=== PATIENT | male | born 1965 | race Caucasian/White ===

== ENCOUNTER 2020-03-12 10:15 | Day surgery (SDC) | payer BC ==
[2020-03-12] VITALS (12 sets, daily range): BP systolic 106–139; BP diastolic 63–90
[~2020-03-12] VITALS: Ht 177.8 cm; Wt 72.6 kg
[~2020-03-12 10:15] MED LIST: BUPIVAcaine/PF 2.5 mg/ml (0.25%) 30ml vial ONE; FURO40TA4 PO; LIDOcaine 1% 30ml preserv. free vial ONE; NALT50TA PO; SPIR25TA5 PO; ceFAZolin 2gm in dextrose, iso 50 ML IV ONE; famotidine 20mg tablet PO ONE; ringers solution, lacted 1,000 ML IV SCH
[2020-03-12] MEDS ORDERED: fentaNYL/PF 50MCG/1 ML 2ML syringe IV PRN ×2 (12:45)
[2020-03-12] MEDS ORDERED: morphine 2 MG/ML inj. syringe IV PRN (12:45)
[2020-03-12] MEDS ORDERED: hydrALAZINE 20mg/ml inj. IV PRN (12:45)
[2020-03-12] MEDS ORDERED: morphine 4 MG/ML inj SYRINge IV PRN (12:45)
[2020-03-12] MEDS ORDERED: ringers solution, lacted 1,000 ML IV SCH (12:45)
[2020-03-12] MEDS ORDERED: ondansetron/PF 4mg/2ml inj IV PRN (12:45)
[2020-03-12] MEDS ORDERED: labetalol 20mg/4ml (5mg/ml) syringe IV PRN (12:45)
[2020-03-12] MEDS ORDERED: dexamethasone sod phosphate 10mg/ml inj ONE (13:47)
[2020-03-12] MEDS ORDERED: sevoflurane 250ml liquid IH ONE (13:47)
[2020-03-12] MEDS ORDERED: fentaNYL/PF 50MCG/1 ML 2ML syringe ONE ×2 (13:52)
[2020-03-12] MEDS ORDERED: midazolam 2 mg/2 ml injection ONE (13:52)
[2020-03-12] MEDS ORDERED: propofol inj 20 ML IV ONE (13:59)
[2020-03-12] MEDS ORDERED: LIDOcaine 2% (20mg/ml) 5ml vial ONE (13:59)
[2020-03-12] MEDS ORDERED: rocuronium 10mg/ml inj IV ONE (14:00)
[2020-03-12] MEDS ORDERED: ondansetron/PF 4mg/2ml inj ONE (14:00)
[2020-03-12] MEDS ORDERED: neostigmine methylsulfate 1 MG/ML 10ml vial ONE (14:03)
[2020-03-12] MEDS ORDERED: glycopyrrolate 0.2mg/ml inj ONE (14:03)
[2020-03-12] MEDS ORDERED: sugammadex 200mg/2ml injection IV ONE (14:28)
--- NOTE | 2020-03-12 14:58 | NUR ---
Received from OR via [facility], accompanied by Anesthesiologist DR TAN and report given by Anesthesiologist. PT DROWSY, DENIES PAIN, UMBILICUS W/SMALL INCISION CDI. Addendum: 03/12/20 at 1714 by Janey Tejada RN Amended: Links added.
[2020-03-12] MEDS ORDERED: oxyCODONE/APAP 5-325mg tablet PO PRN (15:15)
--- NOTE | 2020-03-12 16:48 | NUR ---
PT STABLE AND ABLE TO SAFELY AMBULATE, D/C INSTRUCTIONS GIVEN AND GONE OVER W/PT AND PTS WHO VERBALIZE UNDERSTANDING, PT D/CD TO HOME VIA W/C TO PRIVATE VEHICLE W/O INCIDENT. Addendum: 03/12/20 at 1720 by Janey Tejada RN Amended: Links added.
== END 2020-03-12 16:48 | disposition home or self-care (01) ==
LOC: PAS 10:15
PROVIDERS: ATTEND Surgery
DX: K42.9 Umbilical hernia without obstruction or gangrene (principal); K40.90 Unilateral inguinal hernia, without obstruction or gangrene, not specified as recurrent; K66.0 Peritoneal adhesions (postprocedural) (postinfection); K65.8 Other peritonitis; K74.60 Unspecified cirrhosis of liver; D64.9 Anemia, unspecified; N18.2 Chronic kidney disease, stage 2 (mild); G89.29 Other chronic pain; Z20.828 Contact with and (suspected) exposure to other viral communicable diseases; F17.210 Nicotine dependence, cigarettes, uncomplicated; M19.90 Unspecified osteoarthritis, unspecified site; Z88.6 Allergy status to analgesic agent; Z98.49 Cataract extraction status, unspecified eye; Z79.899 Other long term (current) drug therapy; Z98.890 Other specified postprocedural states; Z83.3 Family history of diabetes mellitus
CPT/HCPCS: 36415; 49320; 49585; 71046; 80053; 82948; 85025; 85610; 85730; 87635; 93005; C9399; J1100; J2001; J2250; J2405; J2704; J2710; J3010; J3490; 85007; A4215; A4618; J7120